=== PATIENT | male | born 1970 | race Caucasian/White ===

== ENCOUNTER 2018-07-19 07:12 | Inpatient (IN) | payer MEDICAID ==
[~2018-07-19] VITALS: Ht 177.8 cm; Wt 124.3 kg
[2018-07-19 08:05] LABS: microscopic required? NO
[2018-07-19 08:17] LABS: urine erythrocyte NEGATIVE (NEGATIVE)
[2018-07-19 08:27] LABS: CALCIUM 8.4 mg/dL (8.5-10.1); CARBON DIOXIDE 25.3 mmol/L (21-32); CHLORIDE SERUM 106 mmol/L (98-107); CREATININE SERUM 0.9 mg/dL (0.7-1.3); GFR1 > 60 mL/min; GLUCOSE SERUM 98 mg/dL (74-106); POTASSIUM SERUM 4.1 mmol/L (3.5-5.1); SODIUM SERUM 140 mmol/L (136-145)
[2018-07-19 08:30] LABS: BASOPHIL % 0.3 % (0-2); PLATELET COUNT 296 x10^3mcL (130-400); RED CELL DISTRIBUTION WIDTH 12.6 % (11.5-14.5)
[2018-07-19 08:37] LABS: AMPHETAMINE QUAL UR NONE DETECTED (See below)
[2018-07-19 08:43] LABS: ALBUMIN 3.6 g/dL (3.4-5.0); ALKALINE PHOSPHATASE 93 U/L (46-116); ALT/SGPT 17 U/L (16-63); AMYLASE 70 U/L (25-115); AST/SGOT 15 U/L (15-37); BILIRUBIN TOTAL 0.43 mg/dL (0.20-1.00); CHOLESTEROL 173 mg/dL (<200); HDL CHOLESTEROL 49 mg/dL (40-60); LIPASE 130 IU/L (73-393); T4(THYROXINE) 9.2 ug/dL (4.7-13.3); TOTAL PROTEIN, SERUM 7.8 g/dL (6.4-8.2)
[2018-07-19] MEDS ORDERED: GOOD SENSE ASP325 MG PO (09:58)
[2018-07-19 11:47] LABS: CHOLESTEROL/HDL RATIO 3.4; MAGNESIUM 2.1 mg/dL (1.8-2.4); PHOSPHOROUS 3.4 mg/dL (2.5-4.9)
[2018-07-19 12:54] VITALS: BP 131/67
[2018-07-19 16:45] VITALS: BP 134/67
[2018-07-19 17:44] VITALS: Ht 177.8 cm; Wt 124.3 kg
[2018-07-19] MEDS ORDERED: [UNRECOGNIZED DRUG - OTHER] SC (18:59)
[2018-07-19] MEDS ORDERED: METOPROLOL TART25 M1 PO (19:00)
[2018-07-19] MEDS ORDERED: ATORVASTATIN CA40 M1 PO (19:00)
[2018-07-19] MEDS ORDERED: CLOPIDOGREL75 M1 PO (19:00)
[2018-07-19] MEDS ORDERED: NIT0.4 SL (19:00)
== END 2018-07-19 21:00 | disposition short-term general hospital (02) | DRG 190 ==
LOC: ED 07:12 → DU 09:35
PROVIDERS: Emergency Medicine; Internal Medicine
DX: I21.4 Non-ST elevation (NSTEMI) myocardial infarction (principal); E78.5 Hyperlipidemia, unspecified; Z68.39 Body mass index [BMI] 39.0-39.9, adult; Z87.891 Personal history of nicotine dependence
CPT/HCPCS: 83880; J1650; Q0092

== ENCOUNTER 2019-04-21 17:04 | Emergency (ER) | payer OTHER ==
[~2019-04-21] VITALS: Ht 177.8 cm; Wt 132.0 kg
[~2019-04-21 17:04] MED LIST: ATORVASTATIN CA40 M1 PO; CLOPIDOGREL75 M1 PO; GOOD SENSE ASP325 MG PO; METOPROLOL TART25 M1 PO; NIT0.4 SL; [UNRECOGNIZED DRUG - OTHER] SC
[2019-04-21 17:10] VITALS: Ht 177.8 cm; Wt 132.0 kg
[2019-04-21 18:52] VITALS: BP 147/71
[2019-05-09] MEDS ORDERED: NOR10T PO (23:05)
== END 2019-04-21 18:52 | disposition home or self-care (01) ==
LOC: ED 17:04
DX: S93.402A Sprain of unspecified ligament of left ankle, initial encounter (principal); S90.31XA Contusion of right foot, initial encounter; I10 Essential (primary) hypertension; F41.9 Anxiety disorder, unspecified; Z88.1 Allergy status to other antibiotic agents; Z91.013 Allergy to seafood; X50.1XXA Overexertion from prolonged static or awkward postures, initial encounter; Y93.89 Activity, other specified; Y92.89 Other specified places as the place of occurrence of the external cause; Y99.8 Other external cause status
CPT/HCPCS: 90715

== ENCOUNTER 2019-05-19 18:40 | Inpatient (IN) | payer OTHER ==
[~2019-05-19] VITALS: Ht 170.2 cm; Wt 135.7 kg
[~2019-05-19 18:40] MED LIST changes: +NOR10T PO
[2019-05-19 19:23] VITALS: Ht 170.2 cm; Wt 135.7 kg
--- NOTE | 2019-05-19 19:26 | NUR ---
EKG IN PROGRESS.
--- NOTE | 2019-05-19 19:49 | NUR ---
PT RESTING IN BED, AAOX4 WITH C/O RESIDULA ACHING CP, 2/10, S/P PALPATATIONS YESTERDAY AT NOON. PT ALSO WITH C/O RESIDUAL SOB AND DIZZINESS. PT DENIES ANY N/V/D/C, RESP ILLNESS, FEVER OR URINARY PROBLEMS AT THIS TIME. PT ON MONITOR. NO SIGNS OF DISTRESS AT THIS TIME.
--- NOTE | 2019-05-19 20:30 | NUR ---
PT RESTING IN BED WITH NO SIGNS OF DISTRESS AT THIS TIME.
[2019-05-19 20:31] LABS: BASOPHIL % 1.4 % (0-2); PLATELET COUNT 245 x10^3mcL (130-400); RED CELL DISTRIBUTION WIDTH 13.7 % (11.5-14.5)
[2019-05-19 20:44] LABS: CALCIUM 8.7 mg/dL (8.5-10.1); CARBON DIOXIDE 26.9 mmol/L (21-32); CHLORIDE SERUM 106 mmol/L (98-107); CREATININE SERUM 0.8 mg/dL (0.7-1.3); GFR1 > 60 mL/min; GLUCOSE SERUM 101 mg/dL (74-106); POTASSIUM SERUM 3.9 mmol/L (3.5-5.1); SODIUM SERUM 141 mmol/L (136-145)
[2019-05-19 20:49] LABS: ALBUMIN 3.5 g/dL (3.4-5.0); ALKALINE PHOSPHATASE 94 U/L (46-116); ALT/SGPT 26 U/L (16-63); AST/SGOT 15 U/L (15-37); BILIRUBIN TOTAL 0.6 mg/dL (0.20-1.00)
--- NOTE | 2019-05-19 21:16 | NUR ---
PT RESTING IN BED WITH EYES CLOSED. NO SIGNS OF DISTRESS AT THIS TIME.
--- NOTE | 2019-05-19 22:19 | NUR ---
REPORT GIVEN TO FIORELLA BURGESS.
[2019-05-19 22:47] VITALS: BP 148/72
--- NOTE | 2019-05-19 22:49 | NUR ---
RECEIVED PT FROM ED VIA [employer]. ORIENTED PT TO ROOM AND SURROUNDINGS. IV NOTED TO LAC PATENT AND INTACT. TELE 8 PLACED ON PT READING AFIB. INSTRUCTED PT ON THE USE OF CALL LIGHT FOR ASSISTANCE. ENDORSED PT TO PRIMARY NURSE [place]
[2019-05-19] MEDS ORDERED: LIPITOR10 MG PO (22:59)
[2019-05-19] MEDS ORDERED: IBUPROFEN400 MG PO (22:59)
[2019-05-19] MEDS ORDERED: ALPRAZOLAM1 MG PO (23:00)
[2019-05-19] MEDS ORDERED: METOPROLOL SUCC50 M2 PO (23:00)
[2019-05-19] MEDS ORDERED: LOSARTAN POTASS50 M1 PO (23:03)
--- NOTE | 2019-05-19 23:11 | NUR ---
REC'D REPORT FROM MARLON BURGESS. PT RESTING IN BED. FOOD GIVEN PER REQUEST. PT DENIES ANY CP, PALPITATIONS, OR SOB AT THIS TIME. TELE READING AFIB. HR 90'S TO LOW 100'S. HOME MEDS AT BEDSIDE. MED REC UPDATED ON COMPUTER. INSTRUCTED PT NOT TO TAKE ANY MEDICATIONS FROM HOME. PT VERBALIZED UNDERSTANDING. DR. CANTRELL MADE AWARE OF UPDATED MEDS. PT IS WAITING FOR XANAX TO SLEEP. IV TO LAC FLUSHED AND PATENT. ORIENTED TO DEVICES AND SURROUNDINGS. CALL LIGHT WITHIN REACH, BED AT LOWEST POSITION. WILL CONTINUE TO MONITOR.
--- NOTE | 2019-05-19 23:46 | NUR ---
PT C/O FEELING ANXIOUS. XANAX GIVEN PER ORDER. WILL MONITOR FOR RELIEF.
[2019-05-20 00:30] LABS: microscopic required? NO
[2019-05-20 00:37] LABS: urine erythrocyte NEGATIVE (NEGATIVE)
[2019-05-20 00:44] LABS: AMPHETAMINE QUAL UR NONE DETECTED (See below)
--- NOTE | 2019-05-20 02:02 | NUR ---
PT RESTING IN BED WITH EYES CLOSED. LAYING ON R SIDE. NO SIGNS OF DISTRESS NOTED. BREATHING EVEN/UNLABORED ON RA. CALL LIGHT WITHIN REACH, BED AT LOWEST POSITION. WILL CONTINUE TO MONITOR.
--- NOTE | 2019-05-20 05:23 | NUR ---
PT RESTING IN BED WITH EYES CLOSED. TELE 8 READING A FIB. HR CONTROLLED AT 70'S. BREATHING EVEN/UNLABORED ON RA. PT HAS NOT COMPLAINED OF ANY SOB, CP, OR PALPITATIONS SINCE ADMISSION. CALL LIGHT WITHIN REACH, BED AT LOWEST POSITION. WILL ENDORSE TO DAY NURSE.
[2019-05-20 05:27] VITALS: BP 119/41
--- NOTE | 2019-05-20 05:59 | NUR ---
PT UP TO VOID. REPORTS MILD SOB. SPO2 97% ON RA. RESPIRATIONS EVEN AND UNLABORED. SPEAKING IN COMPLETE SENTENCES. DENIES CP. ECHO AND CARDIOLOGY CONSULD TODAY. WILL ENDORSE TO DAY NURSE.
--- NOTE | 2019-05-20 07:30 | NUR ---
PT ENDORSE TO ME THIS MORNING, LAYING IN BED RESTING. AA/O X4 BREATHING EVEN AND UNLABORED ON RA, NO ACUTE RESP DISTRESS OR SOB NOTED. TELE 8 AFIB NOTED, HR 92, DENIES ANY CP OR PRESSURE. VOIDS FREELY. AMB. IV TO THE LAC INTACT AND PATENT, NO REDNESS OR SWELLING NOTED. CALL LIGHT IN REACH. BED IN LOW POSITION. WILL CONTINUE TO MONITOR.
[2019-05-20 07:35] LABS: CARBON DIOXIDE 26.5 mmol/L (21-32); CHLORIDE SERUM 106 mmol/L (98-107); CHOLESTEROL 162 mg/dL (<200); CHOLESTEROL/HDL RATIO 3.4; CREATININE SERUM 0.8 mg/dL (0.7-1.3); GFR1 > 60 mL/min; GLUCOSE SERUM 88 mg/dL (74-106); HDL CHOLESTEROL 48 mg/dL (40-60); MAGNESIUM 2.1 mg/dL (1.8-2.4); PHOSPHOROUS 4.2 mg/dL (2.5-4.9); POTASSIUM SERUM 4.1 mmol/L (3.5-5.1); SODIUM SERUM 143 mmol/L (136-145); TRIGLYCERIDES 162 mg/dL (<150)
[2019-05-20 07:45] LABS: BASOPHIL % 0.5 % (0-2); PLATELET COUNT 265 x10^3mcL (130-400); RED CELL DISTRIBUTION WIDTH 13.9 % (11.5-14.5)
[2019-05-20 08:08] VITALS: BP 138/72
--- NOTE | 2019-05-20 09:08 | NUR ---
ASSISTED LIVING NURSING DIRECTOR AT BEDSIDE. PT DENIES ANY CP OR PRESSURE. WILL CONTINUE TO MONITOR.
[2019-05-20 11:37] VITALS: BP 143/73
[2019-05-20 12:26] LABS: T3 TOTAL 1.3 ng/mL
[2019-05-20 12:28] VITALS: BP 176/115
[2019-05-20 12:28] LABS: FREE T4 0.96 ng/dL (0.76-1.46); FREE THYROXINE INDEX 2.4 ug/dL (1.4-4.5); T4(THYROXINE) 7.2 ug/dL (4.7-13.3)
--- NOTE | 2019-05-20 13:14 | NUR ---
PT NOW ON NEW TELE MINDRAY 8 SHOWING A FIB, HR 92, DENIES ANY CP OR PRESSURE. WILL CONTINUE TO MONITOR.
--- NOTE | 2019-05-20 13:53 | NUR ---
PT C/O SWEET AND NECK PAIN 05/07, MEDICATED PER EMAR.
--- NOTE | 2019-05-20 15:51 | NUR ---
PT C/O OF SWEET AND GEN PAIN, MEDICATED PER EMAR. WILL CONTINUE TO MONITOR.
[2019-05-20 18:02] VITALS: BP 115/79
--- NOTE | 2019-05-20 18:20 | NUR ---
OCTAVIA GIVEN. TOLERATED 100% OF DINNER, ASKING IF HE CAN GO HOME, DR. EVANS PAGED AND CALLED. WILL CONTINUE TO MONITOR.
--- NOTE | 2019-05-20 18:50 | NUR ---
NO ACUTE CHANGES AT THIS TIME. NO ACUTE RESP DISTRESS OR SOB NOTED. DENIES ANY CP OR PRESSURE. WILL ENDORSE TO INCOMING RN.
--- NOTE | 2019-05-20 19:30 | NUR ---
RECEIVED PT AOX4 ABLE TO RESPOND TO COMMANDS, MAKE NEEDS KNOWN. SPEECH CLEAR, NO HEADACHE, PUPILS BRISK AND PERRLA.TRACHEA MIDLINE, NO DRAINAGE TO EENT. NO EENT COMPLAINTS.LUNG SOUNDS CLEAR B/L, CHEST RISE/FALL SYMMETRIC, E/U BREATHING.NO ACUTE RESP DISTRESS.DENIES CHEST PAIN. NEW ONSET AFIB DIAGNOSIS, DAY SHIFT NURSE GAVE FIRST DOSE OF XARELTO PER EMAR.PULSES MODERATE X4, CAP REFILL <3 SEC, SKIN COLOR CONSISTENT WITH ETHNICITY, NO EDEMA. ETHNICITY, NO EDEMA.ACTIVE BOWEL SOUNDS X4 QUADRANTS, ABD SOFT/ROUND. PT ABLE TO VOID FREELY, NO COMPLAINTS. NO PENILE EDEMA OR DISCHARGE. SKIN INTACT, WARM/DRY TO TOUCH. IV TO LEFT AC, NO S/S OF INFILTRATION DRESSING CDI, PATENT. BED AT LOWEST SETTING, CALL LIGHT WITHIN REACH, HOB ELEVATED 30 DEGREES PER PT COMFORT. WILL CONT TO MONITOR.
--- NOTE | 2019-05-20 19:35 | NUR ---
SPOKE WITH DR. BARRY ON TELEPHONE ON PT'S REQUESTING TO SPEAK WITH DOCTOR ON PLAN OF CARE AND IF POSSIBLE TO BE DISCHARGED TONIGHT. PER DR. BARRY SHE WILL SEE PATIENT SOON POSSIBLE.
[2019-05-20 20:29] VITALS: BP 119/71
--- NOTE | 2019-05-20 22:50 | NUR ---
UPON ENTERING ROOM PT IN NO ACUTE DISTRESS, CHEST RISE/FALL SYMMETRIC, E/U BREATHING, EASILY ARUOSABLE TO STIMULI. PT DENIES ANY SOB OR PAIN AT THIS TIME.
--- NOTE | 2019-05-21 01:50 | NUR ---
UPON ENTERING ROOM PT IN NO ACUTE DISTRESS, CHEST RISE/FALL SYMMETRIC, E/U BREATHING, EASILY ARUOSABLE TO STIMULI. PT DENIES ANY SOB OR PAIN AT THIS TIME.
[2019-05-21 04:54] VITALS: BP 108/69
--- NOTE | 2019-05-21 05:30 | NUR ---
PT SLEEPING BUT EASILY AROUSABLE TO VERBAL STIMULI. PT IN NO ACUTE DISTRESS, DENIES SOB OR ANY PAIN WHEN ASKED. LEFT AC IV INTACT AND PATENT, NO S/S OF INFILTRATION, DRESSING CDI.
--- NOTE | 2019-05-21 07:06 | NUR ---
GAVE REPORT TO ADITYA SANTIAGO. UPDATES GIVEN, QUESTIONS ANSWERED.
[2019-05-21 07:19] LABS: BASOPHIL % 0.3 % (0-2); PLATELET COUNT 254 x10^3mcL (130-400); RED CELL DISTRIBUTION WIDTH 13.1 % (11.5-14.5)
--- NOTE | 2019-05-21 07:19 | NUR ---
ASSUMED CARE OF PATIENT. SEEN RESTING IN BED THIS MORNING, EASILY AROUSABLE. NO COMPLAINTS OF PAIN, CP OR PRESSURE. NO APPARENT DISTRESS NOTED. IV ON LAC REMAINS SALINE LOCKED. WILL CONTINUE TO MONITOR.
[2019-05-21 07:29] LABS: CALCIUM 8.7 mg/dL (8.5-10.1); CARBON DIOXIDE 24.7 mmol/L (21-32); CHLORIDE SERUM 106 mmol/L (98-107); CREATININE SERUM 0.9 mg/dL (0.7-1.3); GFR1 > 60 mL/min; GLUCOSE SERUM 96 mg/dL (74-106); SODIUM SERUM 141 mmol/L (136-145)
[2019-05-21 09:14] VITALS: BP 113/64
--- NOTE | 2019-05-21 09:35 | NUR ---
PATIENT SITTING IN BED. NO COMPLAINTS OF PAIN OR DISCOMFORT. ASKING ABOUT DISCHARGE TODAY. NO NEW ISSUES.
--- NOTE | 2019-05-21 10:39 | NUR ---
OK TO SHOWER ORDERS, PATIENT SHOWERED.
[2019-05-21 11:55] VITALS: BP 113/64
--- NOTE | 2019-05-21 12:30 | NUR ---
PATIENT PROVIDED WITH DISCHARGE INSTURCTION AND EDUCATION.
--- NOTE | 2019-05-21 12:50 | NUR ---
PATIENT DISCHARGED VIA WHEELCHAIR. ALL BELONGINGS WITH PATIENT. NO COMPLAINTS OF PAIN OR DISCOMFORT. NO APPARENT DISTRESS NTOED. ID BANDS REMOVED.
== END 2019-05-21 12:47 | disposition home or self-care (01) | DRG 201 ==
LOC: ED 18:40 → DU 21:50 → MU 05-20 14:07
PROVIDERS: Emergency Medicine; General Practice; ADMIT Internal Medicine
DX: I48.91 Unspecified atrial fibrillation (principal); E78.5 Hyperlipidemia, unspecified; F41.9 Anxiety disorder, unspecified; I10 Essential (primary) hypertension; M19.90 Unspecified osteoarthritis, unspecified site; I25.2 Old myocardial infarction; Z91.013 Allergy to seafood
CPT/HCPCS: 84439; G0378; Q0092

== ENCOUNTER 2019-12-24 12:25 | Emergency (ER) | payer OTHER ==
[~2019-12-24] VITALS: Ht 177.8 cm; Wt 131.5 kg
[~2019-12-24 12:25] MED LIST changes: +ALPRAZOLAM1 MG PO; +IBUPROFEN400 MG PO; +LIPITOR10 MG PO; +LOSARTAN POTASS50 M1 PO; +METOPROLOL SUCC50 M2 PO
[2019-12-24 12:44] VITALS: BP 139/73; Ht 177.8 cm; Wt 131.5 kg
== END 2019-12-24 15:52 | disposition home or self-care (01) ==
LOC: ED 12:25
DX: S83.91XA Sprain of unspecified site of right knee, initial encounter (principal); I10 Essential (primary) hypertension; Z91.013 Allergy to seafood; X50.1XXA Overexertion from prolonged static or awkward postures, initial encounter; Y93.89 Activity, other specified; Y92.098 Other place in other non-institutional residence as the place of occurrence of the external cause; Y99.8 Other external cause status